=== PATIENT | female | born 2000 | race Caucasian/White ===

== ENCOUNTER 2022-11-03 20:54 | Emergency (ER) | payer OTHER, SELFPAY ==
[2022-11-03 21:17] VITALS: BP 116/68; PULSE 102; RESP 20; TEMP 36.7; O2SAT 95; BMI 18.8
[2022-11-03] MEDS: Ondansetron ODT 4 MG TAB.RAPDIS TRANSLINGU (21:22)
[2022-11-03 21:50] LABS: MANUAL DIFF FLAG NO
[2022-11-03 21:56] LABS: Basophils Percent Auto 0.3 % (0-2); Eosinophils Absolute Auto 0.2 X10*3/uL (0.0-0.4); Eosinophils Percent Auto 2.1 % (0-4); Hematocrit 43.8 % (37.0-47.0); Imm Gran Abs Auto 0.03 X10*3/uL (0.00-0.03); Imm Gran Pct Auto 0.3 % (0.0-0.4); Lymphocytes Absolute Auto 1.4 X10*3/uL (1.2-4.9); Mean Corpuscular Hemoglobin 25.3 pg (27.0-33.0); Mean Corpuscular Volume 79.1 fL (80.0-98.0); Mean Platelet Volume 9.4 fL (9.4-12.3); Monocytes Absolute Auto 0.6 X10*3/uL (0.1-1.2); Monocytes Percent Auto 6.6 % (2-11); Neutrophils Absolute Auto 7.5 x10*3/uL (2.0-8.3); Neutrophils Percent Auto 76.7 % (45-73); Platelet Count 294 X10*3/uL (160-400); Red Blood Count 5.54 X10*6/uL (4.20-5.50); Red Cell Distribution Width 13.9 % (11.0-16.0); White Blood Count 9.7 X10*3/uL (4.8-10.8)
[2022-11-03 22:04] LABS: Alanine Aminotransferase 10 U/L (0-31); Albumin Level 4.7 g/dL (3.5-5.0); Alkaline Phosphatase 78 U/L (39-117); Anion Gap 12 (12-20); Aspartate Amino Transferase 17 U/L (5-31); Bilirubin Total 0.8 mg/dL (0.0-1.0); Blood Urea Nitrogen 10 mg/dL (9-16); Calcium 9.1 mg/dL (8.4-10.2); Carbon Dioxide 26 mmol/L (22-29); Chloride 107 mmol/L (96-108); Creatinine Clr Calc Pharmacy 105.2; Estimated Glomerular Filt Rate > 60; Glucose Random 82 mg/dL (60-115); Potassium 4.1 mmol/L (3.3-5.1); Sodium 141 mmol/L (135-145); Total Protein 7.2 g/dL (6.5-8.0)
[2022-11-03 22:38] LABS: Influenza A PCR NEGATIVE (Negative); Influenza B PCR NEGATIVE (Negative); Resp Syncy Virus RNA Qual PCR NEGATIVE (Negative); SARS COV2 PCR INHOUSE NEGATIVE (Negative)
--- NOTE | 2022-11-04 01:10 | PC.NURSE ---
awaiting provider at this time, pt is sleeping on stretcher, respirations even and unlabored
[2022-11-04 01:12] VITALS: BP 110/62; PULSE 86; RESP 14; O2SAT 98
--- NOTE | 2022-11-04 01:23 | ED.GENADULT ---
HPI - General Adult General Chief complaint: Nausea/Vomiting/Diarrhea Stated complaint: Vomiting/Abd pain Time Seen by Provider: 11/04/22 01:12 Source: patient and RN notes reviewed Mode of arrival: ambulatory Limitations: no limitations History of Present Illness HPI narrative: 22-year-old female presents for evaluation of vomiting. Her symptoms started earlier today. She has not had any fevers, chills, sore throat, cough or severe abdominal pains. Her 1-1/2-year-old daughter is here with similar symptoms Patient denies any previous abdominal surgeries She felt well yesterday She describes her vomitus as nonbloody Related Data Previous Rx's Medication Instructions Recorded ondansetron 4 mg disintegrating 4 mg PO Q8H PRN Nausea And 11/04/22 tablet Vomiting #20 tabs Allergies Allergy/AdvReac Type Severity Reaction Status Date / Time No Known Allergies Allergy Verified 11/03/22 21:19 Review of Systems Constitutional: Constitutional: Reports as per HPI, Denies chills, Denies fatigue, Denies fever(s) and Denies headache(s) ENT: Denies headache(s) Cardiovascular: Cardiovascular: Denies chest pain and Denies dyspnea Respiratory: Respiratory: Denies cough and Denies dyspnea Gastrointestinal: Gastrointestinal: Denies abdominal pain, Denies constipation, Reports nausea and Reports vomiting Genitourinary: Genitourinary: Denies dysuria Neurologic: Denies headache(s) and Denies focal weakness Endocrine: Endocrine: Denies fatigue PMFSH Social History Social History Advance Directives: No Advance Directives Information Provided: No Physical Exam ED Vital Signs: Vital Signs - 24 hr 11/03/22 21:17 11/04/22 01:12 Temperature 98.1 F Pulse Rate 102 H 86 Respiratory Rate 20 14 Blood Pressure 116/68 110/62 Pulse Oximetry 95 98 Oxygen Delivery Method Room Air Room Air BMI result Body Mass Index 18.8 Const General: healthy appearing, comfortable, no acute distress, alert and awake Nutritional Appearance: well nourished Orientation/consciousness: patient oriented x3 HENMT Head: Yes normocephalic and Yes atraumatic Throat: Yes posterior oropharynx normal Eyes Eyelids: Yes eyelids normal Conjunctivae: conjunctivae normal Sclerae: sclerae normal Corneas: corneas normal Pupils: Equal, round and reactive pupils present EOM: EOMs intact bilaterally Neck Neck: Yes full ROM Resp Effort & Inspection: normal respiratory effort, able to speak in complete sentences, no audible wheezes and not labored Auscultation: clear to auscultation bilaterally Cardio Rate: regular rate Rhythm: regular rhythm GI Inspection: No distended Palpation (GI): Soft to palpation, not firm, nontender, no guarding and not rigid Auscultation: normoactive bowel sounds Skin General skin exam: no rashes or lesions noted and elasticity normal Neuro General: patient oriented x3 Cranial nerves: Yes CN's II-XII intact bilaterally, Yes Equal, round and reactive pupils present and Yes Bilaterally intact EOM present Cognition (Neuro): normal cognition Extrem Other: Moving all extremities well without any obvious deformities Medications Administered Discontinued Medications Generic Name Dose Route Start Last Admin Trade Name Freq PRN Reason Stop Dose Admin Ondansetron HCl 4 mg 11/03/22 21:21 11/03/22 21:22 Ondansetron Odt 4 Mg Tab.Rapdis TRANSLINGU 11/03/22 21:22 4 mg ONCE ONE Administration Medical Decision Making Medical Decision Making [facility] Narrative: 22-year-old female presents for evaluation of vomiting. Her daughter is here with similar symptoms. The patient's labs are reviewed and reassuring without significant abnormalities. The patient's abdominal exam is reassuring. She likely has viral gastroenteritis. Will treat with Zofran she will follow the PCP Differential Diagnosis Gastroenteritis Viral syndrome Acute nausea/vomiting Dehydration Norovirus Lab Data [facility] Lab Attestation statement: I reviewed the patient's lab results. 11/03/22 21:45 11/03/22 21:45 Labs: Lab Results 11/03/22 11/03/22 11/03/22 Range/Units 21:43 21:45 21:45 WBC 9.7 (4.8-10.8) X10*3/uL RBC 5.54 H (4.20-5.50) X10*6/uL Hgb 14.0 (12.0-16.0) g/dl Hct 43.8 (37.0-47.0) % MCV 79.1 L (80.0-98.0) fL MCH 25.3 L (27.0-33.0) pg MCHC 32.0 (31.0-35.0) g/dl RDW 13.9 (11.0-16.0) % Plt Count 294 (160-400) X10*3/uL MPV 9.4 (9.4-12.3) fL Immature Gran % (Auto) 0.3 (0.0-0.4) % Neut % (Auto) 76.7 H (45-73) % Lymph % (Auto) 14.0 L (20-40) % [place] % (Auto) 6.6 (2-11) % Eos % (Auto) 2.1 (0-4) % Baso % (Auto) 0.3 (0-2) % Lymph # (Auto) 1.4 (1.2-4.9) X10*3/uL [place] # (Auto) 0.6 (0.1-1.2) X10*3/uL Eos # (Auto) 0.2 (0.0-0.4) X10*3/uL Baso # (Auto) 0.0 (0.0-0.2) X10*3/uL Abs Immat Gran (auto) 0.03 (0.00-0.03) X10*3/uL Absolute Neuts (auto) 7.5 (2.0-8.3) x10*3/uL Absolute Nucleated RBC 0.000 (0.0-0.012) X10*3/uL Nucleated RBC % (auto) 0.0 (0.0-0.2) /100WBC Sodium 141 (135-145) mmol/L Potassium 4.1 (3.3-5.1) mmol/L Chloride 107 (96-108) mmol/L Carbon Dioxide 26 (22-29) mmol/L Anion Gap 12 (12-20) BUN 10 (9-16) mg/dL Creatinine 0.60 (0.5-1.4) mg/dL Estim Creat Clear Calc 105.2 Estimated GFR > 60 Random Glucose 82 (60-115) mg/dL Calcium 9.1 (8.4-10.2) mg/dL Total Bilirubin 0.8 (0.0-1.0) mg/dL AST 17 (5-31) U/L ALT 10 (0-31) U/L Alkaline Phosphatase 78 (39-117) U/L Total Protein 7.2 (6.5-8.0) g/dL Albumin 4.7 (3.5-5.0) g/dL Influenza Type A (PCR) NEGATIVE (Negative) Influenza Type B (PCR) NEGATIVE (Negative) RSV RNA Qual (PCR) NEGATIVE (Negative) SARS-CoV-2 RNA (RT-PCR) NEGATIVE (Negative) Discharge Plan Discharge Clinical Impression: Acute nausea with nonbilious vomiting Patient Disposition: Home, Self-Care Instructions: Acute Nausea and Vomiting (ED) Additional Instructions: Take Zofran as needed for nausea and vomiting. Drink lots of fluids, but small sips at a time to help prevent vomiting your symptoms were likely take 2-3 days to resolve Return if your symptoms are still present after 5 days Prescriptions: New ondansetron 4 mg tablet,disintegrating 4 mg PO Q8H PRN (Reason: Nausea And Vomiting) Qty: 20 0RF
== END 2022-11-04 01:44 | disposition home or self-care (01) ==
PROVIDERS: Emergency Provider Emergency Medicine Emergency Medical Services
DX: R11.2 Nausea with vomiting, unspecified (principal); Z20.822 Contact with and (suspected) exposure to COVID-19; Z20.828 Contact with and (suspected) exposure to other viral communicable diseases
CPT/HCPCS: 0241U; 80053; 85025; 99283

== ENCOUNTER 2022-12-13 21:36 | Emergency (ER) | payer OTHER, SELFPAY ==
[2022-12-13 21:47] VITALS: BP 108/69; PULSE 86; RESP 16; TEMP 37.2; O2SAT 100; BMI 21.2
--- NOTE | 2022-12-13 22:41 | ED_ITS ---
HPI - Female Genitourinary General Chief complaint: Urogenital-Female Stated complaint: uti Time Seen by Provider: 12/13/22 22:03 Source: patient Mode of arrival: ambulatory Limitations: no limitations History of Present Illness HPI Narrative: 22-year-old female presents with urinary frequency, urgency, dysuria, suprapubic abdominal pressure started about 2 hours prior to arrival patient tells me that this feels like her typical urinary tract infection. Denies fevers, chills, nausea, vomiting headache, vision changes, dizziness, weakness, chest pain, shortness of breath, flank pain. Related Data Previous Rx's Medication Instructions Recorded ondansetron 4 mg disintegrating 4 mg PO Q8H PRN Nausea And 11/04/22 tablet Vomiting #20 tabs cefuroxime axetil 250 mg tablet 250 mg PO BID 7 days #14 tabs 12/13/22 Allergies Allergy/AdvReac Type Severity Reaction Status Date / Time No Known Allergies Allergy Verified 12/13/22 21:47 Review of Systems Review of Systems: Constitutional : No Weight loss, No Fever, No Chills, No Fatigue, No Malaise ENT/Mouth : No sore throat, No Rhinorrhea Eyes: No Eye Pain, No Swelling, No Redness Cardiovascular : No Chest Pain, No SOB, No Dyspnea on Exertion, No Orthopnea, No Edema, No Palpitations Respiratory : No Cough, No Sputum, No Wheezing Gastrointestinal : No Nausea, No Vomiting, No Diarrhea, No Constipation, No abdominal Pain, No Hematochezia, No Melena Genitourinary : + Dysuria, + Urinary Frequency, No Hematuria, Musculoskeletal : No joint pain, No Myalgias, No Joint Swelling Skin : No Skin Lesions, No rash Neuro : No Weakness, No Numbness, No Dizziness, No Headache Psych : No Anxiety/Panic, No Depression All other systems reviewed and are negative Yes all other systems are reviewed and are negative [facility] Past Medical History Attestation statement: The following information was validated with the patient. Source: old records reviewed and nursing notes reviewed Social History Social History Advance Directives: No Advance Directives Information Provided: No Physical Exam Vital Signs: Vital Signs: Last Vital Signs Temp 98.9 F 12/13/22 21:47 Pulse 86 12/13/22 21:47 Resp 16 12/13/22 21:47 BP 108/69 12/13/22 21:47 Pulse Ox 100 12/13/22 21:47 O2 Del Method Room Air 12/13/22 21:47 BMI result Body Mass Index 21.2 vss Appearance: Alert.? Oriented X3.? No acute distress.? Head: Normocephalic, atraumatic, no step-offs or deformities Eyes: Pupils equal, round and reactive to light.? Neck: Normal inspection.? Neck supple.? CVS: Normal heart rate and rhythm.? Pulses normal.? Respiratory: No respiratory distress.? Breath sounds normal.? Abdomen: Soft and nontender. Negative [place], [place], [place].? Skin: Skin warm and dry.? Normal skin color.? Normal skin turgor.? Extremities: No lower extremity edema.? No calf ttp. 5/5 strength to bilateral upper and lower extremities Back; No CVA tenderness b/l Neuro: Oriented X 3.? No motor deficit.? No sensory deficit. CN 2-12 intact Course Reevaluation(s) Reevaluation #1: UA with positive leukocyte esterases and 2+ bacteria. Patient to be treated for UTI. Again on repeat exam there is no tenderness to palpation of abdomen patient walking around the room comfortably, hemodynamically stable, tells me she knew that she had a UTI. Educated patient on diagnosis and treatment plan, answered all question, patient verbalizes understanding. At this time patient will be discharged home, advised to return with new or worsening symptoms. Educated on worrisome signs and symptoms and when to return. At this time I feel comfortable discharge home. Time: 23:49 Medications Administered Discontinued Medications Generic Name Dose Route Start Last Admin Trade Name Freq PRN Reason Stop Dose Admin Cefuroxime Axetil 250 mg 12/13/22 23:36 12/13/22 23:46 Cefuroxime Axetil 250 Mg Tablet PO 12/13/22 23:37 250 mg ONCE ONE Administration Medical Decision Making Medical Decision Making [facility] Narrative: [id number] 22-year-old female presents with urinary frequency, urgency, dysuria and suprapubic discomfort this started few hours prior to arrival. Tells me feels like her typical UTI Physical exam benign. No CVA tenderness. Concerns for UTI versus cystitis. Unlikely appendicitis, cholecystitis, diverticulitis, acute abdomen, ectopic , ovarian torsion, pyelonephritis, obstructing uropathy. Plan UA urine . Differential Diagnosis Differential Diagnoses: The differential diagnosis associated with the presentation includes Concerns for UTI versus cystitis. Unlikely appendicitis, cholecystitis, diverticulitis, acute abdomen, ectopic , ovarian torsion, pyelonephritis, obstructing uropathy Admission/Observation Consideration of admission/observation: Escalation of care including admission/observation considered unlikely Lab Data [facility] Lab Attestation statement: I reviewed the patient's lab results. Labs: Lab Results 12/13/22 12/13/22 Range/Units 23:13 23:13 Urine Color Yellow Urine Appearance Cloudy Urine pH 6.5 (5.0-9.0) Ur Specific [place] >= 1.030 H (1.005-1.025) Urine Protein Trace (Neg-Trace) mg/dL Urine Glucose (UA) Negative (Negative) mg/dL Urine Ketones Trace (Negative) mg/dL Urine Blood Negative (Negative) Urine Nitrite Negative (Negative) Ur Leukocyte Esterase Moderate (2+) H (Negative) Urine RBC 3-5 H (0-2) /HPF Urine WBC >50 H (0-5) /HPF Ur Squamous Epith Cells 11-20 (0-2) /HPF Urine Bacteria 2+ (None Seen) Hyaline Casts 0-2 (0-2) /LPF Urine Test NEGATIVE (NEGATIVE) Prescription Management I considered prescription management with: Antibiotic Core Measures AMI core measures followed: Yes Measure exclusions: not indicated Critical Care Time Critical Care Time Critical Care Time: No Discharge Plan Discharge Clinical Impression: Urinary tract infection Patient Disposition: Home, Self-Care Instructions: Urinary Tract Infection in Women (DC) Additional Instructions: Take your medications as prescribed. If you were prescribed antibiotics today, it is important that you take your medication to their entirety, do not skip any doses, do not finish them early. Follow-up with your primary care provider this week. Return to the emergency department with new or worsening symptoms. Such as fevers, chills, chest pain, shortness of breath, nausea, vomiting, dizziness, headache, vision changes, lethargy In case of emergency call 911 Prescriptions: New cefuroxime axetil 250 mg tablet 250 mg PO BID 7 Days Qty: 14 0RF No Action ondansetron 4 mg tablet,disintegrating 4 mg PO Q8H PRN (Reason: Nausea And Vomiting) Qty: 20 0RF Referrals: Physician,Unknown J [Primary Care Provider] - 2 days Stand Alone Forms: Work/School Release Interventions: ED Discharge Assessment Last Done: 12/13/22 23:48
[2022-12-13 23:20] LABS: Appearance Urine Cloudy; Color Urine Yellow; Glucose Urine UA Negative (Negative); Leukocyte Esterase Urine Moderate (2+) (Negative); Nitrite Urine Negative (Negative); PH 6.5 (5.0-9.0); Specific Gravity - Urine >= 1.030 (1.005-1.025); UMIC TRIGGER UACC YES; Urine Blood Negative (Negative); Urine Ketones Trace mg/dL (Negative); Urine Protein Trace mg/dL (Neg-Trace)
[2022-12-13 23:22] LABS: UPreg QC Valid YES; Urine Pregnancy NEGATIVE (NEGATIVE)
[2022-12-13 23:25] LABS: Bacteria Urine 2+ (None Seen); Hyaline Casts Urine 0-2 /LPF (0-2); UACC Culture Trigger YES; WBC Urine >50 /HPF (0-5)
== END 2022-12-13 23:49 | disposition home or self-care (01) ==
PROVIDERS: Physician Assistant; Emergency Provider Emergency Medicine Emergency Medical Services
DX: N39.0 Urinary tract infection, site not specified (principal); Z79.899 Other long term (current) drug therapy
CPT/HCPCS: 81001; 81025; 87086; 99282

== ENCOUNTER 2023-05-09 00:13 | Emergency (ER) | payer OTHER, SELFPAY ==
--- NOTE | 2023-05-09 | ECG_ITS ---
Test Reason : syncope, upper abd pain, chest discomfort Blood Pressure : / mmHG Vent. Rate : 062 BPM Atrial Rate : 062 BPM P-R Int : 136 ms QRS Dur : 084 ms QT Int : 420 ms P-R-T Axes : 043 075 067 degrees QTc Int : 426 ms Normal sinus rhythm Normal ECG No previous ECGs available Referred By: Generic ED Physician Electronically Signed By:ARMAAN LUCIO
[2023-05-09 00:15] VITALS: BP 116/55; PULSE 72; RESP 20; TEMP 36.6; O2SAT 99; BMI 21.2
[2023-05-09 00:32] LABS: MANUAL DIFF FLAG NO
[2023-05-09 00:37] LABS: INTERNATIONAL NORM RATIO 1.1 (0.9-1.1); Prothrombin Time 13.2 SEC (11.1-13.3)
[2023-05-09 00:46] LABS: D Dimer High Sensitivity < 150 NG/ML
[2023-05-09 00:51] LABS: Basophils Percent Auto 0.3 % (0-2); Eosinophils Absolute Auto 0.1 X10*3/uL (0.0-0.4); Eosinophils Percent Auto 0.9 % (0-4); Hematocrit 38.8 % (37.0-47.0); Hemoglobin 12.6 g/dl (12.0-16.0); Imm Gran Abs Auto 0.03 X10*3/uL (0.00-0.03); Imm Gran Pct Auto 0.3 % (0.0-0.4); Lymphocytes Absolute Auto 2.8 X10*3/uL (1.2-4.9); Lymphocytes Percent Auto 32.4 % (20-40); Mean Corpuscular HGB Conc 32.5 g/dl (31.0-35.0); Mean Corpuscular Hemoglobin 25.4 pg (27.0-33.0); Mean Corpuscular Volume 78.2 fL (80.0-98.0); Mean Platelet Volume 9.4 fL (9.4-12.3); Monocytes Absolute Auto 0.7 X10*3/uL (0.1-1.2); Monocytes Percent Auto 7.7 % (2-11); Neutrophils Percent Auto 58.4 % (45-73); Platelet Count 280 X10*3/uL (160-400); Red Blood Count 4.96 X10*6/uL (4.20-5.50); Red Cell Distribution Width 13.3 % (11.0-16.0); White Blood Count 8.6 X10*3/uL (4.8-10.8)
[2023-05-09 01:03] LABS: Alanine Aminotransferase 8 U/L (0-31); Albumin Level 4.4 g/dL (3.5-5.0); Alkaline Phosphatase 64 U/L (39-117); Anion Gap 16 (12-20); Aspartate Amino Transferase 15 U/L (5-31); Bilirubin Direct 0.2 mg/dL (0.0-0.5); Bilirubin Total 0.4 mg/dL (0.0-1.0); Blood Urea Nitrogen 10 mg/dL (9-16); Calcium 9.8 mg/dL (8.4-10.2); Carbon Dioxide 22 mmol/L (22-29); Chloride 103 mmol/L (96-108); Creatinine Clr Calc Pharmacy 100.8; Estimated Glomerular Filt Rate > 60; Glucose Random 86 mg/dL (60-115); Lipase 24 U/L (8-78); Potassium 3.5 mmol/L (3.3-5.1); Sodium 137 mmol/L (135-145); Total Protein 7.1 g/dL (6.5-8.0); Troponin-I High Sensitivity < 2.7 ng/L (<3.5-17.0)
--- NOTE | 2023-05-09 02:04 | PC.NURSE ---
Pt provided with urine cup at this time. Awaiting urine sample.
[2023-05-09 03:02] LABS: Appearance Urine Turbid; Color Urine Yellow; Glucose Urine UA Negative (Negative); Leukocyte Esterase Urine Negative (Negative); Nitrite Urine Negative (Negative); PH 7.5 (5.0-9.0); Urine Blood Negative (Negative); Urine Ketones 80 mg/dL (Negative); Urine Protein Negative (Neg-Trace)
[2023-05-09 03:06] VITALS: RESP 20
[2023-05-09 03:06] LABS: UPreg QC Valid YES; Urine Pregnancy NEGATIVE (NEGATIVE)
--- NOTE | 2023-05-09 03:06 | PC.NURSE ---
Took of care at 1am, pt is resting in bed, no sign of distress, Ua collected and sent. No n/v, pt reports improvement in pain management. Will continue to monitor.
--- NOTE | 2023-05-09 03:45 | ED_ITS ---
HPI - Syncope General Chief Complaint: Abdominal Pain Stated Complaint: Syncope Time Seen by Provider: 05/09/23 02:23 Source: patient Mode of arrival: ambulatory History of Present Illness HPI narrative: 22-year-old female came in for development syncope secondary to upper abdominal discomfort that has since resolved not associated with any fever chills. Related Data Previous Rx's Medication Instructions Recorded ondansetron 4 mg disintegrating 4 mg PO Q8H PRN Nausea And 11/04/22 tablet Vomiting #20 tabs cefuroxime axetil 250 mg tablet 250 mg PO BID 7 days #14 tabs 12/13/22 Allergies Allergy/AdvReac Type Severity Reaction Status Date / Time No Known Allergies Allergy Verified 05/09/23 00:18 Review of Systems 2 Review of Systems: Pertinent positives and negatives as stated in [facility] Past Medical History Source: nursing notes reviewed Social History Social History Use of substances other than those prescribed or required for medical reasons: No Advance Directives: No Advance Directives Information Provided: Yes Physical Exam 2 Vital Signs: Vital Signs: Last Vital Signs Temp 98 F 05/09/23 00:15 Pulse 72 05/09/23 00:15 Resp 20 05/09/23 03:06 BP 116/55 L 05/09/23 00:15 Pulse Ox 99 05/09/23 00:15 O2 Del Method Room Air 05/09/23 00:15 BMI result Body Mass Index 21.2 VITAL SIGNS: Reviewed. GENERAL: Well developed, well nourished, in no acute distress. HEAD: Normocephalic/atraumatic EYES: PERRLA, EOMI EARS: Ext canals without abnormality NOSE: Nares patent bilateral OROPHARYNX: no oral lesions noted, posterior pharynx clear NECK: Supple, no adenopathy LUNGS: Normal breath sounds. No adventitious sounds or accessory muscle use. SpO2<99> CARDIOVASCULAR: Regular rate and rhythm without noted murmurs ABDOMEN: Soft, non-tender, non-distended with bowel sounds. MUSCULOSKELETAL: No tenderness, deformities, or effusions noted on gross inspection. EXTREMITIES: No cyanosis, clubbing or edema. SKIN: Inspection of the skin reveals no rashes NEUROLOGIC: Alert and oriented x 4. Strength and sensation to light touch were grossly intact x 4. Medical Decision Making Medical Decision Making [facility] Narrative: 22-year-old female with history and clinical presentation, DDX: Vasovagal syncope secondary to pain/of motion, possible infection/anemia/electrolyte abnormalities/volume depletion. Reviewed all investigations and a little logic indices negative for leukocytosis or left shift, no anemia or thrombocytopenia. D-dimer is undetectable and otherwise coagulation studies are within normal limits. Chemistry indices are grossly within normal limits and there is no evidence of ALEX her electrolytes/liver enzyme abnormalities. High sensitivity troponin is undetectable. Urinalysis is negative for UTI or hematuria and urine is negative. EKG without arrhythmia. Patient is currently asymptomatic, I suspect that she suffered a vasovagal syncopal episode and based on the short history that has completely resolved there is a possibility of a biliary colic. This was discussed with her at bedside and she was instructed to follow-up with her primary care doctor. Differential Diagnosis Differential Diagnoses: The differential diagnosis associated with the presentation includes Please see the discussion above Admission/Observation Consideration of admission/observation: Escalation of care including admission/observation considered Please see the discussion above Lab Data [facility] Lab Attestation statement: I reviewed the patient's lab results. Please see the discussion above 05/09/23 00:27 05/09/23 00:27 Labs: Lab Results 05/09/23 05/09/23 Range/Units 00:27 02:52 WBC 8.6 (4.8-10.8) X10*3/uL RBC 4.96 (4.20-5.50) X10*6/uL Hgb 12.6 (12.0-16.0) g/dl Hct 38.8 (37.0-47.0) % MCV 78.2 L (80.0-98.0) fL MCH 25.4 L (27.0-33.0) pg MCHC 32.5 (31.0-35.0) g/dl RDW 13.3 (11.0-16.0) % Plt Count 280 (160-400) X10*3/uL MPV 9.4 (9.4-12.3) fL Immature Gran % (Auto) 0.3 (0.0-0.4) % Neut % (Auto) 58.4 (45-73) % Lymph % (Auto) 32.4 (20-40) % [place] % (Auto) 7.7 (2-11) % Eos % (Auto) 0.9 (0-4) % Baso % (Auto) 0.3 (0-2) % Lymph # (Auto) 2.8 (1.2-4.9) X10*3/uL [place] # (Auto) 0.7 (0.1-1.2) X10*3/uL Eos # (Auto) 0.1 (0.0-0.4) X10*3/uL Baso # (Auto) 0.0 (0.0-0.2) X10*3/uL Abs Immat Gran (auto) 0.03 (0.00-0.03) X10*3/uL Absolute Neuts (auto) 5.0 (2.0-8.3) x10*3/uL Absolute Nucleated RBC 0.000 (0.0-0.012) X10*3/uL Nucleated RBC % (auto) 0.0 (0.0-0.2) /100WBC PT 13.2 (11.1-13.3) SEC INR 1.1 (0.9-1.1) D-Dimer High Sensitivty < 150 NG/ML Sodium 137 (135-145) mmol/L Potassium 3.5 (3.3-5.1) mmol/L Chloride 103 (96-108) mmol/L Carbon Dioxide 22 (22-29) mmol/L Anion Gap 16 (12-20) BUN 10 (9-16) mg/dL Creatinine 0.66 (0.5-1.4) mg/dL Estim Creat Clear Calc 100.8 Estimated GFR > 60 Random Glucose 86 (60-115) mg/dL Calcium 9.8 D (8.4-10.2) mg/dL Total Bilirubin 0.4 (0.0-1.0) mg/dL Direct Bilirubin 0.2 (0.0-0.5) mg/dL AST 15 (5-31) U/L ALT 8 (0-31) U/L Alkaline Phosphatase 64 (39-117) U/L Troponin I High Sens < 2.7 (<3.5-17.0) ng/L Total Protein 7.1 (6.5-8.0) g/dL Albumin 4.4 (3.5-5.0) g/dL Lipase 24 (8-78) U/L Urine Color Yellow Urine Appearance Turbid Urine pH 7.5 (5.0-9.0) Ur Specific [place] 1.020 (1.005-1.025) Urine Protein Negative (Neg-Trace) mg/dL Urine Glucose (UA) Negative (Negative) mg/dL Urine Ketones 80 (Negative) mg/dL Urine Blood Negative (Negative) Urine Nitrite Negative (Negative) Ur Leukocyte Esterase Negative (Negative) Urine Test NEGATIVE (NEGATIVE) Independent Interpretation I performed an independent interpretation of an: EKG Interpretation: Normal sinus rhythm, HR-62, no STEMI, MT/QRS/QTC are within normal limits. External Record Review External record reviewed: Outpatient record, Prior outpatient labs and Prior outpatient radiology Discharge Plan Discharge Clinical Impression: Syncope, vasovagal, Abdominal pain Patient Disposition: Home, Self-Care Instructions: Syncope (ED), Abdominal Pain (ED) Additional Instructions: 1. Please follow-up with your primary care doctor for re-evaluation and further outpatient management. Return to the ER for any worsening symptoms. Prescriptions: No Action ondansetron 4 mg tablet,disintegrating 4 mg PO Q8H PRN (Reason: Nausea And Vomiting) Qty: 20 0RF cefuroxime axetil 250 mg tablet 250 mg PO BID 7 Days Qty: 14 0RF Referrals: Thalia Walters MD [Primary Care Provider] - Interventions: ED Discharge Assessment Last Done: 05/09/23 03:59 Discharge Date/Time: 05/09/23 03:59
--- NOTE | 2023-05-09 03:58 | PC.NURSE ---
Reviewed discharge instructions with pt. pt verbalized understanding. no sign of distress.
== END 2023-05-09 03:59 | disposition home or self-care (01) ==
PROVIDERS: Emergency Provider Student in an Organized Health Care Education/Training Program; PCP Internal Medicine
DX: R55 Syncope and collapse (principal); R10.10 Upper abdominal pain, unspecified
CPT/HCPCS: 36415; 80048; 80076; 81003; 81025; 83690; 84484; 85025; 85379; 85610; 93005; 99283; 99285

== ENCOUNTER 2024-02-16 13:33 | Outpatient (AMB) | payer OTHER, SELFPAY ==
--- NOTE | 2024-02-16 13:34 | MHC.OFFWIV ---
Intake Vital Signs 02/16/24 13:35 Height 5 ft 1 in Weight 128 lb BMI 24.2 BP 108/68 Blood Pressure Location Rt brachial Position Sitting Pulse 103 H Pulse Source Pulse Oximeter Temp 98.1 F Temp Source Oral Pulse Oximetry (%) 98 Oxygen Delivery Method Room Air Intake Visit Reasons: [employer] Hives Intake Note: pt is here c/o hives. Onset about 20 mins ago while swimming. New chemical Patient Tobacco Use Status: Former Tobacco user Allergies No Known Allergies Allergy (Verified 02/16/24 13:40) Do you need a note to return to daycare/school/sports/work: No HPI HPI Comments History of Present Illness Details Patient is a 23-year-old female who is 24 weeks complaining of a rash on her arms and legs. She states she went swimming in a pool where they had just put some chemicals in and she thinks she has having an allergic reaction to it. She states the rash is very itchy, she denies any feelings of her throat closing up for itchiness in the back of her throat. She denies any fevers. FORMERLY [facility], 1928–1983 Social History Patient Tobacco Use Status: Former Tobacco user Review of Systems Const All systems reviewed & are unremarkable except as noted in HPI and below Physical Exam Vital Signs: Last Vital Signs Temp 98.1 F 02/16/24 13:35 Pulse 103 H 02/16/24 13:35 BP 108/68 02/16/24 13:35 Pulse Ox 98 02/16/24 13:35 Oxygen Delivery Method Room Air 02/16/24 13:35 BMI result Body Mass Index 24.2 Const Other: Visibly General: cooperative, healthy appearing, comfortable, no acute distress and well developed Orientation/consciousness: patient oriented x3 Limitations: no limitations Eyes General: appearance normal, both eyes and all related structures Resp Effort & Inspection: normal respiratory effort and able to speak in complete sentences Skin Other: Disseminated maculopapular rash on bilateral upper and lower extremities, no signs of infection noted, no ecchymosis, no crusting, no excoriation Neuro General: patient oriented x3 Assessment & Plan Assessment & Plan (1) Contact dermatitis: Code(s): L25.9 - Unspecified contact dermatitis, unspecified cause Qualifiers: Contact dermatitis type: allergic Contact dermatitis trigger: other chemical product Qualified Code(s): L23.5 - Allergic contact dermatitis due to other chemical products Plan: Recommended Benadryl, Aveeno oatmeal bath and calamine lotion or a cortisone cream for itching. Advised if it continues or gets worse, to follow up with her OBGYN Plan see above Medications: Discontinued ondansetron Discontinued Reason: Patient no longer taking 4 mg PO Q8H PRN 20 tabs 0RF Nausea And Vomiting cefuroxime axetil Discontinued Reason: Patient Completed Course 250 mg PO BID 7 days 14 tabs 0RF Coding Level of Care Code New Pt Level 3 (19342) Diagnoses Allergic dermatitis due to other chemical product L23.5 Contact dermatitis type: allergic Contact dermatitis trigger: other chemical product
[2024-02-16 13:35] VITALS: BP 108/68; PULSE 103; TEMP 36.7; O2SAT 98; BMI 24.2
== END 2024-02-16 14:02 | disposition home or self-care (01) ==
PROVIDERS: PCP Internal Medicine; Visit Provider Physician Assistant
DX: L23.5 Allergic contact dermatitis due to other chemical products (principal)
CPT/HCPCS: 99203